=== PATIENT | male | born 1955 | race Caucasian/White ===

== ENCOUNTER 2023-04-10 07:54 | Outpatient (OUT) | payer BC, SELFPAY ==
--- NOTE | 2023-04-10 | NM_ITS ---
Patient Name: CALEB MURDOCK MR#: [id number] : 1955 Exam Date: 04/10/2023 Ordering Doctor: DR ENRIQUE JOSEPH D.O. RADIOLOGY REPORT PROCEDURE: NM MARELY PERF SPECT REST STR COMPARISON: None. INDICATIONS: Dyspnea on exertion TECHNIQUE: Exam Description: Stress/Rest one day protocol gated SPECT Rest Imagin.6 mCi Tc-99m Cardiolite IV on 04/10/2023 Stress Imaging 30.2 mCi Tc-99m Cardiolite IV on 04/10/2023 Exercise Protocol: 0.4 mg Lexiscan given IV Heart Rate (bpm): Rest: 61 Max: 94 PMHR: 61 Blood Pressure: Rest: 130/78 Max: 144/76 Symptoms: Rest and peak stress ECG findings were normal and the exercise portion of the study was normal per attending physician Dr. Mueller . For more details please see separate cardiac stress test report. FINDINGS: QUALITY OF STUDY: Excellent. PERFUSION DEFECT: None. LOCATION: N/A SIZE: N/A. SEVERITY: N/A. TYPE: N/A. WALL MOTION: Normal. LV SIZE: Normal. 82 mL. TID / TCD: None; 0.9 LVEF: Normal. Calculated EF 68%. SUMMARY: Myocardial perfusion imaging study is NORMAL. CONCLUSION: 1. Normal myocardial perfusion scan with no reversible ischemia 2. Normal exercise test Dictated by: Raduel Duval MD on 04/10/2023 at 13:42 Approved by: Raudel Duval MD on 04/10/2023 at 13:44
[2023-04-10] MEDS: REGADENOSON 0.4 MG/5 ML SYRINGE IV (09:38)
--- NOTE | 2023-04-10 10:02 | PM.STRESS ---
Stress Test Stress Test Requesting physician: ENRIQUE JOSEPH Procedure: Lexiscan Cardiolite stress test General Information: Reason for Stress Test: Dyspnea Cardiac History and Risk Factors: Former smoker Resting 12 - Lead Electrocardiogram: Rate & rhythm: Normal sinus at a rate of 65. [place]: Normal T-waves: Flattened in I and inverted in aVL ST-segments: Normal Stress Test: Protocol: Lexiscan protocol was initiated with injection of 0.4mg Lexiscan IV push followed by Cardiolite. Blood pressure: Initial: 130/78, Maximum: 144/76 Rate & rhythm: Patient remained in sinus rhythm during the exercise and recovery portions of the study.? The maximum heart rate was 94, which was 61% of the maximum predicted heart rate 153. ST-segments & T-waves: There were no T-wave changes and no ST-segment changes when compared to the baseline EKG. Patient response/symptoms: There were no symptoms similar to the chief complaint. Interpretation: Normal Lexiscan stress test. Cardiolite imaging interpretation will be reported separately. Clinical correlation required.?
== END 2023-04-10 07:55 | disposition home or self-care (01) ==
LOC: NM 07:54
PROVIDERS: Family Provider Internal Medicine; PCP Internal Medicine; Visit Provider Internal Medicine
DX: R06.00 Dyspnea, unspecified (principal); R06.02 Shortness of breath; R53.83 Other fatigue
CPT/HCPCS: 78452; 93017; A9500; J2785